=== PATIENT | male | born 1985 | race Caucasian/White ===

== ENCOUNTER → 2016-06-02 | Day surgery (SDC) | payer OTHER ==
[~2016-06-02] VITALS: Ht 172.7 cm; Wt 65.8 kg
[2016-06-02] VITALS (11 sets, daily range): BP systolic 117–143; BP diastolic 59–76
[~2016-06-02] MED LIST: Alfentanil 2ml Inj ONE; Atropine Inj 1mg/10ml Syr IV PRN; Bupivacaine w/Epi 0.25% 30ml Vial INJ ONE; CO Q-10400 MG PO; D5 1/2NS 1,000 ML IV SCH; DHEA25 MG PO; Dexamethasone 4mg/ml vial ONE; DiphenhydrAMINE 50mg/ml Inj IVP PRN; EPINEPHrine 1mg/1ml Amp ONE; HYDROmorphone 1mg/ml Carpuject SUBQ PRN; Hydromorphone 0.5mg/0.5ml inj IVP PRN; Ketorolac 30mg Inj IV PRN; Ketorolac 60mg Inj IV PRN; LORazepam Inj 2mg/ml 1ml IV PRN; LR 1000ml 1,000 ML IVLG SCH; LR 1000ml ONE; Lidocaine 1% MPF 10mg/ml 5ml ONE; Meperidine 25mg/ml Inj IV PRN; Metoclopramide 10mg/2ml Inj IVP PRN; Midazolam 2mg/2ml Inj IVP PRN; Midazolam 2mg/2ml Inj ONE; NS Irrig 4000ml IRRIG ONE; Norco 5mg/325mg tab ORAL PRN; Norco 7.5mg/325mg tab ORAL PRN; Oxycodone/Acetaminophen 5-325 ORAL PRN; Propofol 10mg/ml 20ml IV ONE; Ropivacaine 5mg/ml Vial 20ml INJ ONE; Sterile Water Irrig 1000ml IRRIG ONE; Tylenol #3 tab (300mg/30mg) ORAL PRN; VITAMIN B125000 MCG PO; VITAMIN D400 INTLU ORAL; ceFAZolin 1gm in D5W 55ml IVPB ONE; celeBREX 200mg Cap **SURGERY PATIENTS ONLY ORAL ONE; fentaNYL 100 mcg/2 mL IV PRN; oxyCONTIN 20mg tab ORAL ONE
--- NOTE | 2016-06-02 16:42 | Anethesia Preoperative Eval ---
Anesthesia Pre-op PMH/ROS General Date of Evaluation: Jun 02, 2016 Time of Evaluation: 17:21 Anesthesiologist: Prabha ASA Score: ASA 2 Mallampati Score Class I : Soft palate, uvula, fauces, pillars visible Class II: Soft palate, uvula, fauces visible Class III: Soft palate, base of uvula visible Class IV: Only hard plate visible Mallampati Classification: Class II Surgeon: Hi Diagnosis: R Shoulder Pain Surgical Procedure: R Shoulder Arthroscopy, Rotator Cuff Repair Anesthesia History: none Family History: no anesthesia problems Allergies: Coded Allergies: No Known Allergies (Unverified , 06/01/16) Medications: see eMAR Anesthesia Pre-op Phys. Exam Physician Exam Last Vital Signs Date Time Temp Pulse Resp B/P Pulse Ox O2 Delivery O2 Flow Rate FiO2 06/02/16 15:01 99.0 61 18 117/76 99 Room Air Constitutional: NAD Neurologic: CN 2-12 intact Cardiovascular: RRR Respiratory: CTA Gastrointestinal: S/NT/ND Airway Exam Mallampati Score: Class II MO: full ROM: limited Teeth: intact Anesthesia Pre-op A/P Risk Assessment & Plan Assessment: ASA 2 Plan: GA, BIS, R Supraclavicular Block Status Change Before Surgery: No Pre-Antibiotics Dru Gram Ancef IV Given Within 1 Hr of Incision: Yes Time Given: 17:41 Doni Armando MD Jun 02, 2016 16:42
--- NOTE | 2016-06-02 16:43 | Immediate Post-Op Evaluation ---
Immediate Post-Op Evalulation Immediate Post-Op Evalulation Procedure: R Shoulder Arthroscopy, Rotator Cuff Repair Date of Evaluation: Jun 02, 2016 Time of Evaluation: 18:34 IV Fluids: 600 LR Blood Products: 0 Estimated Blood Loss: 6 Urinary Output: 0 Blood Pressure Systolic: 147 Blood Pressure Diastolic: 62 Pulse Rate: 84 Respiratory Rate: 16 O2 Sat by Pulse Oximetry: 100 Temperature (Fahrenheit): 97.4 Pain Score (1-10): 1 Nausea: No Vomiting: No Complications 0 Patient Status: awake, reacts, patent, extubated, none Hydration Status: adequate Dru Gram Ancef IV Given Within 1 Hr of Incision: Yes Time Given: 17:41 Doni Armando MD Jun 02, 2016 16:43
--- NOTE | 2016-06-02 16:44 | 48 Hour Post Anesthesia Eval ---
Post Anesthesia Evaluation Procedure: R Shoulder Arthroscopy, Rotator Cuff Repair Date of Evaluation: Jun 02, 2016 Time of Evaluation: 20:43 Blood Pressure Systolic: 121 0: 63 Pulse Rate: 81 Respiratory Rate: 18 Temperature (Fahrenheit): 97.4 O2 Sat by Pulse Oximetry: 100 Airway: patent Nausea: No Vomiting: No Pain Intensity: 1 Hydration Status: adequate Cardiopulmonary Status: Stable Mental Status/LOC: patient returned to baseline Follow-up Care/Observations: 0 Post-Anesthesia Complications: 0 Follow-up care needed: ready to discharge Doni Armando MD Jun 02, 2016 16:44
--- NOTE | 2016-06-02 18:28 | Pre-Procedure Note/Attestation ---
Pre-Procedure Note/Attestation Complete Prior to Procedure Planned Procedure: right Procedure Narrative: shoulder slap tear repair Indications for Procedure Pre-Operative Diagnosis: right shoulder slap tear Attestation I attest that I discussed the nature of the procedure; its benefits; risks and complications; and alternatives (and the risks and benefits of such alternatives ), prior to the procedure, with the patient (or the patient's legal order entry representative). I attest that, if there was a reasonable possibility of needing a blood transfusion, the patient (or the patient's legal order entry representative) was given the [facility] standardized written summary, pursuant to the [employer] Blood Safety Act ([place] Health and Safety Code # 1645, as amended). I attest that I re-evaluated the patient just prior to the surgery and that there has been no change in the patient's H&P, except as documented below: GAETANO ROSARIO Jun 02, 2016 18:28
--- NOTE | 2016-06-02 18:28 | Operative Note - PDOC ---
Operative Note Operative Note Pre-op Diagnosis: right shoulder slap tear Procedure: see op report Post-op Diagnosis: same as pre-op plus Operative Findings: consistent w/pre-op dx studies Anesthesia: general Specimen: none Complications: none Condition: stable Estimated Blood Loss: none Implant(s) used?: Yes GAETANO ROSARIO Jun 02, 2016 18:28
--- NOTE | 2016-06-03 03:08 | Operative Note - Dictated ---
DATE OF OPERATION: 06/02/2016 PREOPERATIVE DIAGNOSIS: Right shoulder SLAP tear. POSTOPERATIVE DIAGNOSES: 1. Right shoulder superior labral tear. 2. Subacromial bursitis. PROCEDURES: 1. Right shoulder arthroscopic SLAP repair. 2. Subacromial bursectomy. SURGEON: Ron Do M.D. ANESTHESIA: Interscalene with general. INDICATION FOR PROCEDURE: The patient is a pleasant gentleman, who sustained a significant injury to his right shoulder, had MRI which showed traumatic superior labral tear. Given the extensive nature of the area elected to undergo right shoulder arthroscopy with superior labral repair. Risks, limitations, expectations, and complications related to procedure was detailed and questions addressed. DESCRIPTION OF PROCEDURE: An informed consent was obtained. The patient was taken to the operative room and placed under interscalene general anesthesia. The patient was then placed carefully in beach-chair position. Right shoulder was prepped and draped in a sterile manner. Time-out was performed. The portal site was injected with 0.25% Marcaine with epinephrine. Inferolateral stab incision was then made. Trocar was introduced into the glenohumeral joint. No significant chondral damage. Subscap appeared to be intact. The anterior labrum appeared to be intact. The superior labral had some detachment, anteromedial working portal was established. The probe was then placed in the superior glenoid and superior labrum, which was lifted off the biceps tendon and the rotator cuff appeared to be intact. At this point, the undersurface of the superior labrum was debrided. Arthroscopic ankle was then placed in a mattress suture was then placed down to the superior labrum to the glenoid. This was not well-secured. The camera was repositioned in the subacromial space and bursectomy was performed. There was no need for formal acromioplasty. The instruments were removed. Portal sites were closed using 3-0 Monocryl suture. Steri-Strips and a sterile dressing were applied. The patient was awoken and taken to recovery room with stable vital signs. ESTIMATED BLOOD LOSS: Minimal. COMPLICATIONS: None. SPECIMENS: None. IMPLANTS: Include 1 juggernaut anchor. Ron Do M.D. DR: Simon JOB#: [id number] CC:
== END | disposition home or self-care (01) ==
LOC: SUR 14:10
DX: S43.431A Superior glenoid labrum lesion of right shoulder, initial encounter (principal); X58.XXXA Exposure to other specified factors, initial encounter; Y92.89 Other specified places as the place of occurrence of the external cause; Y99.9 Unspecified external cause status; M75.51 Bursitis of right shoulder
CPT/HCPCS: 29807; 29826; J0171; J0690; J1100; J2250; J2405; J2704; J2795; J3490; J7120; 94003; 94150; C1713

== ENCOUNTER 2016-09-08 05:11 | Inpatient (IN) | payer OTHER ==
[2016-09-08] VITALS (12 sets, daily range): BP systolic 120–146; BP diastolic 64–84
[~2016-09-08] VITALS: Ht 172.7 cm; Wt 65.8 kg
[~2016-09-08 05:11] MED LIST changes: -Alfentanil 2ml Inj ONE; -Atropine Inj 1mg/10ml Syr IV PRN; -Bupivacaine w/Epi 0.25% 30ml Vial INJ ONE; -D5 1/2NS 1,000 ML IV SCH; -Dexamethasone 4mg/ml vial ONE; -DiphenhydrAMINE 50mg/ml Inj IVP PRN; -EPINEPHrine 1mg/1ml Amp ONE; -HYDROmorphone 1mg/ml Carpuject SUBQ PRN; -Hydromorphone 0.5mg/0.5ml inj IVP PRN; -Ketorolac 30mg Inj IV PRN; -Ketorolac 60mg Inj IV PRN; -LORazepam Inj 2mg/ml 1ml IV PRN; -LR 1000ml 1,000 ML IVLG SCH; -LR 1000ml ONE; -Lidocaine 1% MPF 10mg/ml 5ml ONE; -Meperidine 25mg/ml Inj IV PRN; -Metoclopramide 10mg/2ml Inj IVP PRN; -Midazolam 2mg/2ml Inj IVP PRN; -Midazolam 2mg/2ml Inj ONE; -NS Irrig 4000ml IRRIG ONE; -Norco 5mg/325mg tab ORAL PRN; -Norco 7.5mg/325mg tab ORAL PRN; -Oxycodone/Acetaminophen 5-325 ORAL PRN; -Propofol 10mg/ml 20ml IV ONE; -Ropivacaine 5mg/ml Vial 20ml INJ ONE; -Sterile Water Irrig 1000ml IRRIG ONE; -Tylenol #3 tab (300mg/30mg) ORAL PRN; -ceFAZolin 1gm in D5W 55ml IVPB ONE; -celeBREX 200mg Cap **SURGERY PATIENTS ONLY ORAL ONE; -fentaNYL 100 mcg/2 mL IV PRN; -oxyCONTIN 20mg tab ORAL ONE
[2016-09-08] MEDS ORDERED: OMEGA 3 1,0001 EACH PO (05:59)
[2016-09-08] MEDS ORDERED: NIACIN125 MG PO (05:59)
[2016-09-08] MEDS ORDERED: Surgicel 4in x 8in TOPIC ONE (06:39)
[2016-09-08] MEDS ORDERED: Thrombin 5000 units TOPIC ONE (06:39)
[2016-09-08] MEDS ORDERED: Lidocaine 1% Plain 30 ml INJ ONE (06:39)
[2016-09-08] MEDS ORDERED: Bacitracin 50000 Units Vial ONE (06:40)
[2016-09-08] MEDS ORDERED: Vancomycin 1gm inj IVPB ONE (06:40)
[2016-09-08] MEDS ORDERED: Bupivacaine 0.5% Inj 30 ml vial INJ ONE (06:40)
[2016-09-08] MEDS ORDERED: Dexamethasone 20mg/5ml IVP ONE (07:00)
[2016-09-08] MEDS ORDERED: ceFAZolin 1gm in D5W 55ml IVPB ONE (07:00)
[2016-09-08] MEDS ORDERED: LR 1000ml 1,000 ML IVLG SCH (07:08)
--- NOTE | 2016-09-08 07:10 | Anethesia Preoperative Eval ---
Anesthesia Pre-op PMH/ROS General Date of Evaluation: Sep 08, 2016 Time of Evaluation: 07:36 Anesthesiologist: Prabha ASA Score: ASA 2 Mallampati Score Class I : Soft palate, uvula, fauces, pillars visible Class II: Soft palate, uvula, fauces visible Class III: Soft palate, base of uvula visible Class IV: Only hard plate visible Mallampati Classification: Class II Surgeon: Khadijah Diagnosis: Neck Pain Surgical Procedure: ADR C5-6 Anesthesia History: none Family History: no anesthesia problems Allergies: Coded Allergies: ACETAMINOPHEN (Verified Allergy, Severe, itching , 09/08/16) OXYCODONE (Verified Allergy, Severe, itching , 09/08/16) Medications: see eMAR Anesthesia Pre-op Phys. Exam Physician Exam Last Vital Signs Date Time Temp Pulse Resp B/P Pulse Ox O2 Delivery O2 Flow Rate FiO2 09/08/16 05:46 98.6 72 18 130/68 96 Room Air Constitutional: NAD Neurologic: CN 2-12 intact Cardiovascular: RRR Respiratory: CTA Gastrointestinal: S/NT/ND Airway Exam Mallampati Score: Class II MO: full ROM: limited Anesthesia Pre-op A/P Risk Assessment & Plan Assessment: ASA 2 Plan: GA, BIS, Glidescope Status Change Before Surgery: No Pre-Antibiotics Dru Gram Ancef IV Given Within 1 Hr of Incision: Yes Time Given: 07:48 Doni Armando MD Sep 08, 2016 07:10
[2016-09-08] MEDS ORDERED: Midazolam 2mg/2ml Inj IVP PRN (07:15)
[2016-09-08] MEDS ORDERED: Ketorolac 60mg Inj IV PRN (07:15)
[2016-09-08] MEDS ORDERED: Norco 7.5mg/325mg tab ORAL PRN (07:15)
[2016-09-08] MEDS ORDERED: Metoclopramide 10mg/2ml Inj IVP PRN (07:15)
[2016-09-08] MEDS ORDERED: Oxycodone/Acetaminophen 5-325 ORAL PRN (07:15)
[2016-09-08] MEDS ORDERED: HYDROmorphone 1mg/ml Carpuject IVP PRN (07:15)
[2016-09-08] MEDS ORDERED: Transderm Scop 1mg Transdermal TDERMAL PRN (07:15)
[2016-09-08] MEDS ORDERED: HYDROmorphone 2mg tab ORAL PRN (07:15)
[2016-09-08] MEDS ORDERED: fentaNYL 100 mcg/2 mL IV PRN (07:15)
[2016-09-08] MEDS ORDERED: Hydromorphone 0.5mg/0.5ml inj IVP PRN (07:15)
[2016-09-08] MEDS ORDERED: HydrOXYzine 25mg tab ORAL PRN (07:15)
[2016-09-08] MEDS ORDERED: Norco 5mg/325mg tab ORAL PRN (07:15)
[2016-09-08] MEDS ORDERED: HYDROmorphone 1mg/ml Carpuject SUBQ PRN (07:15)
[2016-09-08] MEDS ORDERED: DiphenhydrAMINE 50mg/ml Inj IVP PRN (07:15)
[2016-09-08] MEDS ORDERED: LORazepam Inj 2mg/ml 1ml IV PRN (07:15)
[2016-09-08] MEDS ORDERED: Meperidine 25mg/0.5ml Inj (FOR RIGORS ONLY) IV PRN (07:15)
[2016-09-08] MEDS ORDERED: Atropine Inj 1mg/10ml Syr IV PRN (07:15)
[2016-09-08] MEDS ORDERED: Ketorolac 30mg Inj IV PRN (07:15)
[2016-09-08] MEDS ORDERED: Chloraseptic Spray 20mL Bottle ORAL PRN (07:15)
--- NOTE | 2016-09-08 07:40 | Pre-Procedure Note/Attestation ---
Pre-Procedure Note/Attestation Complete Prior to Procedure Planned Procedure: not applicable Procedure Narrative: C5-C6 ADR, possible ACDF with anterior plate fixation Indications for Procedure Pre-Operative Diagnosis: Post trauma cervical neck pain Attestation I attest that I discussed the nature of the procedure; its benefits; risks and complications; and alternatives (and the risks and benefits of such alternatives ), prior to the procedure, with the patient (or the patient's legal signs and displays sales representative). I attest that, if there was a reasonable possibility of needing a blood transfusion, the patient (or the patient's legal signs and displays sales representative) was given the [facility] standardized written summary, pursuant to the [employer] Blood Safety Act ([place] Health and Safety Code # 1645, as amended). I attest that I re-evaluated the patient just prior to the surgery and that there has been no change in the patient's H&P, except as documented below: MILADIS KEBEDE Sep 08, 2016 07:40
[2016-09-08] MEDS ORDERED: Acetaminophen (Non formulary) 100 ML IV ONE (08:00)
--- NOTE | 2016-09-08 09:16 | Immediate Post-Op Evaluation ---
Immediate Post-Op Evalulation Immediate Post-Op Evalulation Procedure: ADR C5-6 Date of Evaluation: Sep 08, 2016 Time of Evaluation: 10:45 IV Fluids: 1000 LR Blood Products: 0 Estimated Blood Loss: 25 Urinary Output: 0 Blood Pressure Systolic: 132 Blood Pressure Diastolic: 73 Pulse Rate: 86 Respiratory Rate: 16 O2 Sat by Pulse Oximetry: 100 Temperature (Fahrenheit): 98.1 Pain Score (1-10): 2 Nausea: No Vomiting: No Complications 0 Patient Status: awake, reacts, patent, extubated, none Hydration Status: adequate Dru Grams Ancef IV Given Within 1 Hr of Incision: Yes Time Given: 07:48 Doni Armando MD Sep 08, 2016 09:16
--- NOTE | 2016-09-08 10:26 | Brief Operative Note ---
Immediate Post Operative Note Operative Note Pre-op Diagnosis: Post trauma cervical neck pain Procedure: C5-6 ADR spinal cord decompression SSEP Microscope Xray Post-op Diagnosis: same as pre-op Findings: consistent w/pre-op dx studies Surgeon: Khadijah BRAGG Metaphysics Teacher: Tl BRAUN Anesthesiologist: Prabha BRAGG Anesthesia: general Specimen: none Complications: none Condition: stable Estimated Blood Loss: minimal Drains: none Implant(s) used?: Yes MILADIS KEBEDE Sep 08, 2016 10:26
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
[2016-09-08] MEDS ORDERED: Naloxone 0.4mg/ml Inj IVP PRN (13:00)
[2016-09-08] MEDS ORDERED: D5 1/2NS 1,000 ML IV SCH (13:30)
[2016-09-08] MEDS ORDERED: ceFAZolin sod 1 GM in D5W 55 ML IV SCH (15:00)
[2016-09-08] MEDS ORDERED: LR 1000ml ONE (17:29)
[2016-09-08] MEDS ORDERED: Midazolam 2mg/2ml Inj ONE (17:29)
[2016-09-08] MEDS ORDERED: Zemuron 50mg/5ml Inj IV ONE (17:29)
[2016-09-08] MEDS ORDERED: Glycopyrrolate 0.2mg/ml 1ml Vial ONE (17:29)
[2016-09-08] MEDS ORDERED: fentaNYL 250mcg/5ml ONE (17:29)
[2016-09-08] MEDS ORDERED: Propofol 10mg/ml 20ml IV ONE (17:29)
[2016-09-08] MEDS ORDERED: Neostigmine 1mg/ml 10ml Inj ONE (17:29)
[2016-09-08] MEDS ORDERED: Docusate 100mg/10ml Liq NG SCH (18:00)
--- NOTE | 2016-09-08 21:15 | Operative Note - Dictated ---
DATE OF OPERATION: 09/08/2016 SURGEON: Romeo Lucio Ph.D. M.D. ADMITTING/PREOPERATIVE DIAGNOSIS: Posttraumatics cervicogenic neck pain. POSTOPERATIVE DIAGNOSIS: Posttraumatics cervicogenic neck pain. OCCUP THER: KADE Hong ANESTHESIOLOGIST: Doni Armando M.D. ANESTHESIA: General with intubation. ESTIMATED BLOOD LOSS: Minimal. COMPLICATIONS: None. POSTOPERATIVE CONDITION: Good/stable. OPERATIVE PROCEDURE: C5-C6 artificial disc replacement, Prestige. High-power magnification dissection. SSEP monitoring. Intraoperative x-rays interpreted by surgeon. Decompression spinal cord. DESCRIPTION OF PROCEDURE: The patient is brought to the operating room and in supine position. General anesthesia with intubation was induced. Intravenous antibiotics, 10 mg intravenous Decadron were administered 30 minutes prior to incision time. Cross-table fluoroscopic images were obtained without penetration of any markers into the skin for determination of incision placement. Markers were placed on the contralateral aspect of the neck during the radiographs. The skin was marked with a sterile marking pen. Markers removed. Anterior cervical spine sterilely prepped and draped free in the usual sterile fashion. A transverse left incision at the appropriate interval was sharply placed through the dermis and epidermis. Electrocautery dissection was carried to the subcutaneous tissue to the level of the platysmas muscle that was identified, isolated, and transected in line of the incision. Dissection was carried medial to the left sternocleidomastoid muscle and to the carotid sheath through the deep cervical and pretracheal fascia to the midline between the right and left longus colli muscles. Spinal needle bent so as not to allow penetration greater than 3 mm was placed into the disc space. A cross-table image was obtained under sterile conditions demonstrating the correct level for further dissection. Level was marked. Subperiosteal dissection over the appropriate interval of the longus colli muscles not exceeding 3 mm in the mediolateral extent followed with retractor placement. After retractor was placed, needle was replaced into the disc space. A cross-table image was obtained reconfirming the correct level as C5-C6. Needle was removed. Annulotomy performed. Discectomy to but not through the posterior longitudinal ligament. Posterior longitudinal ligament resected, decompression spinal cord. No dural tears or leaks occurred anytime during the procedure. SSEP monitoring stable at all times. Appropriate determination with trials for the artificial disc replacement. Appropriate cutting with guidance undertaken of the vertebral body endplates followed with real cutting vertically-oriented followed with implantation of the artificial disc. Cross-table imaging demonstrated excellent alignment with the disc trials demonstrating appropriately utilized disc allowed coverage of the posterior vertebral body cortex whereas the artificial disc trial of the next decrease in AP dimensions was deemed too short. Bleeding bone was cauterized with application of sterile wax. Wound was irrigated with antibiotic-containing saline. FloSeal followed with 0.25 mg of vancomycin powder after copious irrigation of the wound, also before application of FloSeal or the vancomycin powder. Exploration revealed no excoriation or laceration of vital structures and no bleeding. Reapproximation with 4-0 Vicryl suture material was undertaken of the platysmas muscle followed with reapproximation of dermis and epidermis with running subcuticular suture followed by surgical strips and sterile bandage maintained in place of tape. The patient was awakened and extubated in the operating room and transported to postop recovery in good stable condition. Romeo Lucio M.D. DR: SAÚL JOB#: [id number] CC:
[2016-09-09 10:55] VITALS: BP 104/52
--- NOTE | 2016-09-09 10:55 | 48 Hour Post Anesthesia Eval ---
Post Anesthesia Evaluation Procedure: ADR C5-6 Date of Evaluation: Sep 08, 2016 Time of Evaluation: 15:20 Blood Pressure Systolic: 104 0: 52 Pulse Rate: 76 Respiratory Rate: 20 Temperature (Fahrenheit): 97.5 O2 Sat by Pulse Oximetry: 98 Airway: patent Nausea: No Vomiting: No Pain Intensity: 2 Hydration Status: adequate Cardiopulmonary Status: stable Mental Status/LOC: patient returned to baseline Follow-up Care/Observations: n/a Post-Anesthesia Complications: none Follow-up care needed: ready to discharge TEDDY PIERCE M.D. Sep 09, 2016 10:55
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
== END 2016-09-08 17:30 | disposition home or self-care (01) | DRG 518 ==
LOC: SDSOVERFLO 05:11 → 3E 12:19
PROC: 0RR30JZ Replacement of Cervical Vertebral Disc with Synthetic Substitute, Open Approach (ICD-10-PCS; principal; 2016-09-08 07:00)
DX: M50.022 Cervical disc disorder at C5-C6 level with myelopathy (principal); Z88.6 Allergy status to analgesic agent; V89.2XXS Person injured in unspecified motor-vehicle accident, traffic, sequela
CPT/HCPCS: 36415; 72040; 76001; 86850; 86900; 86901; 87081; G0378; J2180; J2250; J2405; J2710